=== PATIENT | female | born 1950 | race Caucasian/White ===

== ENCOUNTER 2018-06-29 13:07 | Outpatient (CLI) | payer BC, SELFPAY ==
--- NOTE | 2018-06-29 12:58 | DI.RAD_ITS ---
SYMPTOMS/DIAGNOSIS: F/U RIGHT OPEN REDUCTION AND INTERNAL FIXATION, TIBIAL PLATEAU RIGHT KNEE: Two views. Comparison is 03/01/17. There is again seen a sideplate and screw transfixing the lateral tibial plateau fracture. There is a persistent lucency seen in the lateral tibial plateau, which may represent an unhealed nonunited fracture. The orthopedic hardware and fracture components appear unchanged compared to the prior examination. No new fractures or dislocations are seen.
== END 2018-06-29 13:27 ==
PROVIDERS: PCP Family Medicine; Visit Provider Student in an Organized Health Care Education/Training Program
DX: S82.141P Displaced bicondylar fracture of right tibia, subsequent encounter for closed fracture with malunion (principal)
CPT/HCPCS: 73560

== ENCOUNTER 2019-11-16 01:28 | Outpatient (CLI) | payer MEDICARE, BC, SELFPAY ==
--- NOTE | 2019-11-16 06:30 | DI.MAMMO_ITS ---
EXAM: MAMMO SCREENING CLINICAL HISTORY: screening,Z12.39 TECHNIQUE: Mammograms were interpreted according to the usual protocol including computer analysis w [employer] CAD system, tomosynthesis and C-view imaging. COMPARISON: FINDINGS: Breasts are of moderate density with fairly symmetrical distribution of fibroglandular tissue. No do minant mass or clumped microcalcification is identified in either breast. Current examination is com pared with previous examinations including June 2016 and there has been no gross interval change in appearance in comparison with the prior studies. IMPRESSION: No specific evidence of malignancy at this time. Routine screening examinations are suggested at ye leslee intervals due to the family history of breast carcinoma. BI-RADS Category 1 - Negative Breast Density - Category B - Scattered areas of fibroglandular density
== END 2019-11-16 01:48 ==
PROVIDERS: PCP Nurse Practitioner; Visit Provider Family Medicine
DX: Z12.31 Encounter for screening mammogram for malignant neoplasm of breast (principal); Z80.3 Family history of malignant neoplasm of breast
CPT/HCPCS: 77063; 77067

== ENCOUNTER 2020-12-13 03:06 | Outpatient (CLI) | payer MEDICARE, BC, SELFPAY ==
--- NOTE | 2020-12-13 07:30 | DI.US_ITS ---
Exam(s) US THYROID EXAM: US THYROID CLINICAL HISTORY: EVALUATE GOITER, E04.9. TECHNIQUE: Ultrasound thyroid performed using standard protocol. COMPARISON: No exams were available for comparison FINDINGS: ISTHMUS: 2 mm RIGHT LOBE: Size: 4.9 x 1.9 x 2.6 cm Echogenicity: Normal. Vascularity: Normal. Nodules: Multiple nodules. The largest measures 3.1 x 2.3 x 2.4 cm. It exhibits characteristics con sistent with a TI-RADS level 5 nodule. The next largest nodule measures 2.8 x 1.1 x 2.6 cm. It exhi bits characteristics consistent with a TI-RADS level 4 nodule. LEFT LOBE: Size: 5 x 1.4 x 1.3 cm Echogenicity: Normal. Vascularity: Normal. Nodules: Multiple nodules. There are no nodules greater than 1 cm. OTHER FINDINGS: None. IMPRESSION: Multinodular thyroid gland. DATA REPOSITORY:
--- NOTE | 2020-12-13 07:30 | DI.MAMMO_ITS ---
Exam(s) MAMMO SCREENING EXAM: MAMMO SCREENING CLINICAL HISTORY: screening,Z12.39 TECHNIQUE: Bilateral full field digital CC and MLO mammographic images were obtained with 3D tomosyn thesis and utilizing computer aided detection (CAD). COMPARISON: Available for comparison. FINDINGS: Masses/Architectural Distortion: None seen. Microcalcifications: No suspicious pleomorphic-type are seen. Skin Thickening/Nipple Retraction: None. IMPRESSION: 1. No significant interval change with no specific features of malignancy noted. 2. Unless there is more urgent need, screening mammography is recommended, as per [employer] guidelines. BI-RADS Category 1 - Negative Breast Density - Category B - Scattered areas of fibroglandular density Breast density category C or D implies that the patient has dense breast tissue. Dense breast tissue is very common and is not abnormal but dense breast tissue can make it harder to find cancer on a ma mmogram. Also, dense breast tissue may increase their breast cancer risk. This information about the result of the mammogram report was provided to the patient to raise their awareness. Use this report when you speak with the patient about their risks for breast cancer, which includes their family hist ory. At that time, you may recommend for more screening tests (Ultrasound or MRI) as they might be us eful based on their risk. A negative radiographic report should not delay biopsy if a dominant or clinically suspicious mass is present. Up to ten percent of cancers are not identified on mammography. A negative report may reinforce clinical impression. Adenosis and dense breasts may obscure an underlying neoplasm. False positive reports average 6 to 10%. Patient will receive a letter notifying them of these results.
== END 2020-12-13 03:26 ==
PROVIDERS: PCP Nurse Practitioner; Visit Provider Nurse Practitioner
DX: Z12.31 Encounter for screening mammogram for malignant neoplasm of breast (principal); E04.2 Nontoxic multinodular goiter; R92.8 Other abnormal and inconclusive findings on diagnostic imaging of breast
CPT/HCPCS: 77063; 77067; 76536

== ENCOUNTER 2020-12-25 01:50 | Outpatient (CLI) | payer MEDICARE, BC, SELFPAY ==
--- NOTE | 2020-12-25 07:00 | DI.US_ITS ---
Exam(s) US PELVIS EXAM: US PELVIS CLINICAL HISTORY: Evaluate endometrial stripe, UTERINE PROLAPSE, N81.4 TECHNIQUE: Ultrasound of the pelvis was performed using transabdominal technique. Transvaginal stud y was apparently not performed.. COMPARISON: FINDINGS: UTERUS: Uterus is nongravid and anteverted Measures 7.2 cm length x 2.8 cm AP x 3.2 cm wide. There are no uterine fibroids. Endometrial thickness measures 2.6 mm. There is no fluid in the endometrial canal. CERVIX: There are no obvious nabothian cysts. RIGHT OVARY: Measures 2.3 x 2.6 x 2.6 cm Appears to contain a cyst of measuring approximately 1.6 x 1.9 x 2.3 cm.. LEFT OVARY: Measures 1.8 x 0.9 x 1.4 cm No significant cysts nor masses evident in the left ovary. CUL-DE-SAC: No free fluid evident. IMPRESSION: 1. Normal appearing uterus and age-appropriate endometrium. 2. There appears to be a 16 x 19 x 23 millimeters cyst in the right ovary. If clinically indicated f ollow-up transvaginal study can be performed if clinically possible. 3. No free fluid evident in the adnexal regions and cul-de-sac. DATA REPOSITORY:
== END 2020-12-25 02:10 ==
PROVIDERS: PCP Nurse Practitioner; Visit Provider Obstetrics & Gynecology
DX: N81.4 Uterovaginal prolapse, unspecified (principal); N83.201 Unspecified ovarian cyst, right side
CPT/HCPCS: 76856

== ENCOUNTER 2021-12-03 10:43 | Outpatient (CLI) | payer MEDICARE, BC, SELFPAY ==
[2021-12-03 12:30] LABS: HGB 13.8 g/dL (11.2-15.7); MCH 28.9 pg (27.0-33.0); MCHC 32.9 % (32.0-36.0); MCV 88 fL (80-95); MPV 10.4 fL (8.0-11.0); Platelet Count 331 10^3/uL (130-400); RBC 4.78 10^6/uL (3.93-5.22); RDW 12.9 % (11.7-14.6); RDW-SD 41.6 fL; WBC 6.83 10^3/uL (4.4-10.8)
[2021-12-03 12:49] LABS: ALT 27 U/L (14-59); AST 24 U/L (15-37); Albumin 3.6 g/dL (3.4-5.0); Alkaline Phosphatase 76 U/L (46-116); BUN 21 mg/dL (7-18); Bilirubin, Total 0.6 mg/dL (0.2-1.0); CREATININE 0.7 mg/dL (0.55-1.02); Calculated LDL 183 mg/dL (<100); Chloride 107 mmol/L (98-107); Cholesterol 258 mg/dL (<200); Glucose 85 mg/dL (74-106); HDL Cholesterol 60 mg/dL (40-60); Potassium 4.3 mmol/L (3.5-5.1); Sodium 143 mmol/L (136-145); TSH (W/Ref FT4) 3.86 uIU/mL (0.36-3.74); Total Protein 7.1 g/dL (6.4-8.2); Triglyceride 77 mg/dL (<150)
[2021-12-03 12:51] LABS: Hemoglobin A1C 5.6 % (<5.7)
[2021-12-03 13:10] LABS: FREE T4 0.88 ng/dL (0.76-1.46)
== END 2021-12-03 10:44 | disposition home or self-care (01) ==
LOC: LOS 10:43
PROVIDERS: Family Medicine; PCP Family Medicine; Visit Provider Family Medicine
DX: D64.9 Anemia, unspecified (principal); I10 Essential (primary) hypertension; E78.5 Hyperlipidemia, unspecified; R73.9 Hyperglycemia, unspecified
CPT/HCPCS: 36415; 80053; 80061; 85027; 83036; 84439; 84443

== ENCOUNTER 2022-07-30 09:55 | Outpatient (CLI) | payer MEDICARE, BC, SELFPAY ==
[2022-07-30 12:40] LABS: Anion Gap 10.9 mmol/L (3-11); BUN 19 mg/dL (7-18); CO2 26.1 mmol/L (21.0-32.0); CREATININE 0.8 mg/dL (0.55-1.02); Calcium 9.3 mg/dL (8.5-10.1); Calculated LDL 208 mg/dL (<100); Chloride 106 mmol/L (98-107); Cholesterol 287 mg/dL (<200); Estimated GFR 79.22 (mL/min/1.73m2); Glucose 102 mg/dL (74-106); HDL Cholesterol 62 mg/dL (40-60); Potassium 4.1 mmol/L (3.5-5.1); Sodium 143 mmol/L (136-145); TSH (W/Ref FT4) 4.57 uIU/mL (0.36-3.74); Triglyceride 89 mg/dL (<150)
== END 2022-07-30 09:56 | disposition home or self-care (01) ==
LOC: LOS 09:55
PROVIDERS: PCP Family Medicine; Referring Provider Nurse Practitioner Family; Visit Provider Nurse Practitioner Family
DX: E03.9 Hypothyroidism, unspecified (principal); E78.5 Hyperlipidemia, unspecified; E87.1 Hypo-osmolality and hyponatremia
CPT/HCPCS: 36415; 80048; 80061; 84439; 84443

== ENCOUNTER → 2022-12-14 03:06 | Outpatient (CLI) | payer MEDICARE, BC, SELFPAY ==
--- NOTE | 2022-12-14 10:07 | DI.MAMMO_ITS ---
Exam(s) MAMMO SCREENING EXAM: MAMMO SCREENING CLINICAL HISTORY: screening,Z12.39. TECHNIQUE: Bilateral full field digital CC and MLO mammographic images were obtained with 3D tomosyn thesis and utilizing computer aided detection (CAD). COMPARISON: Prior mammograms were reviewed. FINDINGS: There has been no significant change in the appearance and distribution of the fibroglandular tissue. No CAD designations. There are no new spiculated masses nor malignant appearing microcalcification groups. There is no significant architectural distortion nor skin thickening-retraction. IMPRESSION: No radiographic evidence of malignancy. BI-RADS Category 1 - Negative Breast Density - Category B - Scattered areas of fibroglandular density Breast density Category C or D implies that the patient has dense breast tissue. Dense breast tissue can make it harder to find cancer on a mammogram. Dense breast tissue is also associated with an incr eased risk of breast cancer. This information about the result of the mammogram report was provided to the patient to raise their awareness. Use this report when you speak with the patient about their risks for breast cancer, which includes their family history. At that time, you may recommend additional screening tests (Ultrasoun d or MRI) as these tests may add significant information. A negative radiographic report should not delay biopsy if a dominant or clinically suspicious mass is present. Up to ten percent of cancers are not identified on mammography. A negative report may reinforce clinical impression. Adenosis and dense breasts may obscure an underlying neoplasm. False positive reports average 6 to 10%. Patient will receive a letter notifying them of these results.
== END ==
PROVIDERS: PCP Family Medicine; Visit Provider Family Medicine
DX: Z12.31 Encounter for screening mammogram for malignant neoplasm of breast (principal)
CPT/HCPCS: 77063; 77067

== ENCOUNTER 2023-01-07 18:49 | Outpatient (REF) | payer MEDICARE, BC, SELFPAY | END 2023-01-07 18:50 | disposition home or self-care (01) | LOC: LBN 18:49 | PROVIDERS: PCP Family Medicine; Visit Provider Nurse Practitioner Family | DX: R31.9 Hematuria, unspecified (principal) | CPT/HCPCS: 87086 ==

== ENCOUNTER 2023-01-15 11:15 | Outpatient (REF) | payer MEDICARE, BC, SELFPAY ==
[2023-01-15 12:54] LABS: Bilirubin Negative (Negative); Blood Trace-intact (Negative); Clarity Clear (Clear); Glucose Negative (Negative); Ketones Negative (Negative); Leukocyte Esterase Negative (Negative); Nitrite Negative (Negative); Specific Gravity 1.015 (1.005-1.025); Urobilinogen 0.2 mg/dL (Up to 0.2)
[2023-01-15 13:13] LABS: Bacteria Negative HPF (Negative); C & S Indicated? No; Casts Negative LPF (Negative); Crystals Negative HPF (Negative); Epithelial Cells Rare HPF (Negative); Mucus Negative (Negative); RBC 0-2 HPF (0-2); WBC Negative HPF (0-5)
== END 2023-01-15 11:16 | disposition home or self-care (01) ==
LOC: LBN 11:15
PROVIDERS: PCP Family Medicine; Visit Provider Nurse Practitioner Family
DX: R31.9 Hematuria, unspecified (principal)
CPT/HCPCS: 81003; 81015

== ENCOUNTER → 2023-06-30 02:22 | Outpatient (CLI) | payer MEDICARE, BC, SELFPAY ==
--- NOTE | 2023-06-30 | DI.US_ITS ---
Exam(s) US PELVIS EXAM: US PELVIS CLINICAL HISTORY: Postmenopausal bleeding, N95.0. TECHNIQUE: Transabdominal pelvic ultrasound was performed using standard protocol. COMPARISON: US US PELVIS from 12/25/2020 FINDINGS: UTERUS: The patient has a pessary. Position: Anteverted. Size: 6.1 x 3 x 4.2 cm Endometrium: The endometrial stripe could not be visualized on this transabdominal examination. Myometrium: Unremarkable. Cervix: Unremarkable. OVARIES: Right: 3.3 x 2.6 x 3.1 cm Cyst or mass: No suspicious cystic or solid masses. There appears to be a 2 x 1.8 x 1.9 cm cyst. Left: 2.8 x 1 x 1.9 cm Cyst or mass: No suspicious cystic or solid masses. DOPPLER: Color: Blood flow was seen in the left ovary. Blood flow could not be obtained due to difficulty wit h the overlying bowel. CUL-DE-SAC: Free fluid: None. Other: None. IMPRESSION: 1. Examination limited by overlying bowel. Transabdominal only pelvic ultrasound was performed at th is time. 2. The endometrial stripe could not be seen on this transabdominal examination. DATA REPOSITORY:
== END ==
PROVIDERS: PCP Family Medicine; Visit Provider Student in an Organized Health Care Education/Training Program
DX: N95.0 Postmenopausal bleeding (principal); N83.291 Other ovarian cyst, right side
CPT/HCPCS: 76856

== ENCOUNTER 2023-12-21 01:35 | Outpatient (CLI) | payer MEDICARE, BC, SELFPAY ==
--- NOTE | 2023-12-21 07:45 | DI.MAMMO_ITS ---
Exam(s) MAMMO SCREENING EXAM: MAMMO SCREENING CLINICAL HISTORY: screening,z12.39 TECHNIQUE: Mammograms were interpreted according to the usual protocol including computer analysis w [employer] CAD system, tomosynthesis and C-view imaging. COMPARISON: 2016 through 2022 FINDINGS: The breasts are composed of scattered fibroglandular densities, Breast Density category B. No suspicious masses or suspicious microcalcifications are seen. No skin thickening or abnormal axillary lymph nodes are seen. There has been no significant change from prior exams. IMPRESSION: BI-RADS Category 1, Negative mammogram Yearly screening mammography is recommended. Breast Density - Category B, scattered fibroglandular densities. A negative radiographic report should not delay biopsy if a dominant or clinically suspicious mass is present. Up to ten percent of cancers are not identified on mammography. A negative report may reinforce clinical impression. Adenosis and dense breasts may obscure an underlying neoplasm. False positive reports average 6 to 10%. Patient will receive a letter notifying them of these results.
== END 2023-12-21 01:55 ==
LOC: DI 01:36
PROVIDERS: PCP Family Medicine; Visit Provider Family Medicine
DX: Z12.31 Encounter for screening mammogram for malignant neoplasm of breast (principal)
CPT/HCPCS: 77063; 77067

== ENCOUNTER 2024-03-17 02:00 | Outpatient (CLI) | payer MEDICARE, BC, SELFPAY ==
[2024-03-17 08:32] LABS: CREATININE 0.9 mg/dL (0.55-1.02); Calculated LDL 172 mg/dL (<100); Cholesterol 248 mg/dL (<200); Estimated GFR 68.35 (mL/min/1.73m2); HDL Cholesterol 56 mg/dL (40-60); Potassium 3.6 mmol/L (3.5-5.1); TSH (W/Ref FT4) 5.33 uIU/mL (0.36-3.74); Triglyceride 103 mg/dL (<150)
[2024-03-17 08:49] LABS: FREE T4 0.93 ng/dL (0.76-1.46)
== END 2024-03-17 02:01 | disposition home or self-care (01) ==
LOC: LBO 02:01
PROVIDERS: PCP Family Medicine; Visit Provider Family Medicine
DX: I10 Essential (primary) hypertension (principal); E78.5 Hyperlipidemia, unspecified; E03.9 Hypothyroidism, unspecified
CPT/HCPCS: 36415; 80061; 82565; 84132; 84439; 84443